=== PATIENT | male | born 1990 | race Caucasian/White ===

== ENCOUNTER 2024-10-20 21:22 | Emergency (ER) | payer BC ==
[2024-10-20] MEDS: Bacitracin Oint 1 GM U/D Packet TOP ONE (21:46)
== END 2024-10-20 22:10 | disposition home or self-care (01) ==
LOC: CC.ED 21:22
DX: S01.81XA Laceration without foreign body of other part of head, initial encounter (principal); S01.511A Laceration without foreign body of lip, initial encounter; W22.8XXA Striking against or struck by other objects, initial encounter; Y99.0 Civilian activity done for income or pay; Y92.89 Other specified places as the place of occurrence of the external cause
CPT/HCPCS: 12013; 99282; J2003; 99283